=== PATIENT | male | born 1980 | race American Indian/Alaskan Native ===

== ENCOUNTER 2021-02-10 00:14 | Emergency (ER) | payer BC ==
[2021-02-10 03:24] VITALS: BP 152/88
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
== END 2021-02-10 04:35 | disposition home or self-care (01) ==
LOC: ED 00:14
DX: F41.9 Anxiety disorder, unspecified (principal); F17.200 Nicotine dependence, unspecified, uncomplicated; Z79.899 Other long term (current) drug therapy
CPT/HCPCS: 99283